=== PATIENT | female | born 1965 | race Caucasian/White ===

== ENCOUNTER 2016-09-30 08:43 | Outpatient (CLI) ==
[2015-10-01 22:47] VITALS: BMI 28.5
--- NOTE | 2016-09-30 10:19 | MRI ---
EXAM: MRI brain without and with IV contrast. DATE: 09/30/2016. HISTORY: Headaches. TECHNIQUE: Sagittal T1W pre and postcontrast, axial T2W, axial FLAIR, axial T1W pre and postcontras t, axial DWI, coronal T1W postcontrast, and coronal T2W GRE sequences of the brain were obtained usi 1.2 [employer]orsche magnet. CONTRAST: Omniscan - 10 ml IV. COMPARISON: CT head 10/01/2015. FINDINGS: The ventricles, cisterns, and subarachnoid spaces are normal in size and configuration. No midline shift, mass effect or abnormal extra-axial fluid collection is apparent. No acute infarc t, hemorrhage or enhancing neoplasm is identified. No abnormal contrast enhancement is identified i n the brain, meninges or dura. Minimal T2W/FLAIR hyperintensity is observed in the white matter abu tting each lateral ventricle. A handful of 2-4 mm, T2W/FLAIR bright, non-enhancing foci are scatter ed in the subcortical white matter bilaterally. The shields - white matter differentiation is normal. No migration or diverticulation abnormality is identified. The amygdala, hippocampus, and parahipp ocampal gyri are similar bilaterally. The 7th/8th cranial nerve complexes, cerebellopontine angles, brainstem, and visible cervical spinal cord are normal. There is no cerebellar tonsillar ectopia. The pituitary gland is normal in size, and has normal signal. Corpus callosum is normal in size an d configuration. Flow voids are present in the major intracranial arteries and in the dural venous sinuses. No aneurysm, AVM or dural venous sinus thrombosis is apparent. No orbit abnormality is id entified. A reticular pattern of T2W bright, T1W intermediate signal without hyperenhancement invol ves a small number of right and moderate number of left mastoid air cells. There is no acute sinusi tis. No neck mass or lymphadenopathy is detected. No calvarial neoplasm or acute fracture is evide nt. IMPRESSIONS: 1. No acute infarct, hemorrhage, enhancing mass or hydrocephalus. 2. Minor cerebral white matter changes - likely small vessel disease. 3. Bilateral mastoid disease, left greater than right.
== END 2016-09-30 08:44 | disposition home or self-care (01) ==
LOC: RAD 08:43
PROVIDERS: ATTEND Family Medicine
DX: R51 Headache (principal)

== ENCOUNTER 2016-10-28 06:58 | Outpatient (CLI) ==
[2015-10-01 22:47] VITALS: BMI 28.5
--- NOTE | 2016-10-28 08:42 | MRI ---
EXAM: MRI brain without IV contrast. DATE: 10/28/2016. HISTORY: Headaches (worsening), chronic neck. TECHNIQUE: Sagittal T1W, axial T2W, axial FLAIR, axial T1W, axial DWI, and coronal T2W GRE sequence s of the brain were obtained using 1.2 [employer] magnet. No IV contrast. COMPARISON: MRI brain 09/30/2016. MRI C-spine 10/28/2016. FINDINGS: The ventricles, cisterns, and subarachnoid spaces are normal in size and configuration. No midline shift, mass effect or abnormal extra-axial fluid collection is apparent. No acute infarc t, hemorrhage or neoplasm is identified. Narrow, confluent rim of T2W/FLAIR hyperintensity is obser jose daniel in the white matter abutting each lateral ventricle. A handful of 2-6 mm, T2W/FLAIR bright foci are scattered in the subcortical white matter bilaterally. The shields - white matter differentiation is normal. The 7th/8th cranial nerve complexes, cerebellopontine angles, brainstem, and visible cer vical spinal cord are normal. There is no cerebellar tonsillar ectopia. The pituitary gland is nor mal in size and signal. Corpus callosum is normal in size and configuration. Flow voids are presen t in the major intracranial arteries and in the dural venous sinuses. No aneurysm, AVM or dural sultana ous sinus thrombosis is apparent. Appearance in the lens of each eye suggest prior cataract surgery . No other orbit abnormality is identified. A small number of inferior mastoid air cells bilateral ly (left greater than right) have T2W bright, T1W intermediate signal similar to September 2016. Remaini ng mastoid air cells are unremarkable. Frontal sinuses are hypoplastic. There is no acute sinusiti s. No neck mass or lymphadenopathy is detected. No calvarial neoplasm or acute fracture is evident . A T1W dark, 6 mm focus in the C4 vertebral body is partially visualized on this exam, but correla issac with a T1W dark, T2W/FLAIR bright lesion on the MRI C-spine of the same date. IMPRESSIONS: 1. No acute infarct, hemorrhage, neoplasm or hydrocephalus. 2. Minor, stable cerebral white matter changes - likely small vessel disease. 3. Bilateral mastoid disease (left > right) is chronic. 4. C4 body lesion - consider atypical hemangioma.
--- NOTE | 2016-10-28 08:54 | MRI ---
EXAM: MRI cervical spine without IV contrast. DATE: 10/28/2016. HISTORY: Chronic neck pain. Worsening headaches. TECHNIQUE: Sagittal and axial T1W and T2W sequences of the cervical spine along with sagittal IR an d coronal T2W sequences were obtained using 1.2 [employer] magnet. No IV contrast. COMPARISON: MRI brain [address] C-spine 10/01/2015. FINDINGS: Minimal rightward curvature of the cervical spine is noted. A 1.3 mm anterior subluxatio n of C5 relative to C4 and 1.4 mm anterolisthesis of C5 relative to C6 are evident. No other sublux ation, acute fracture, or jumped facet is detected. A T2W/IR bright, T1W dark, 6.3 x 7 x 6 mm focus in the C4 vertebral body corresponds with subtle slightly sclerotic focus on prior CT scan. Small anterior osteophytes are demonstrated at C5-6 and C6-7. Mild/moderate left sided degenerative endpl ate changes and moderate disc space narrowing are identified at C6-7. Cervical and upper thoracic sp inal cord reveals no syrinx, cord edema, myelomalacia, or neoplasm. Visible brainstem and cerebellum are normal. Reticular pattern of bilateral mastoid air cell diseas e (left > right) persists. Trachea, larynx, and epiglottis are normal. No thyroid, submandibular, o r parotid gland neoplasm is evident. No distinct neck mass, cervical lymphadenopathy, apical lung m ass, pneumonia, or pleural effusion is demonstrated. Segmental analysis: C2-3: Slight thickening posterior longitudinal ligament is noted. No central canal stenosis. Ther e is minor right facet arthropathy. Each foramen is patent. C3-4: Small posterior disc bulge (1.6 mm AP) does not contact the cord. Canal is 11.3 mm AP. Tito r/mild left foraminal stenosis is due to uncinate hypertrophy. C4-5: Minimal anterior subluxation of C4 and minor posterior disc bulge do not cause cord compressi on. Canal is 10.6 mm AP. Mild left foraminal stenosis is due to moderate left facet arthropathy. C5-6: Minimal anterior subluxation of C5 and minor posterior disc bulge do not cause cord compressi on. Canal is 9.8 mm AP. Mild left foraminal stenosis is due to moderate left facet arthropathy. C6-7: Broad posterior disc/osteophyte complex (2.7 mm AP) flattens the cord anteriorly. Canal is 8 mm AP. Moderate left foraminal stenosis is due to uncinate hypertrophy and minor left facet arthro ricky. C6-7: Minimal posterior disc bulge (1 mm AP) does not contact the cord. Canal is 11.4 mm AP. Each foramen is patent. T1-2: Normal. IMPRESSIONS: 1. C-spine mild spondylosis, mild/moderate facet arthropathy, and multilevel DDD. 2. Mild central canal stenosis and mild cord flattening at C5-6. No syrinx or myelomalacia. 3. Multilevel foraminal stenoses, especially left C6-7. 4. Persistent mastoid air cells disease (left > right). 5. 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 If there is clinical concern for flora gnant neoplasm / metastatic disease, a bone scan could be obtained to exclude a metabolically active process.
== END 2016-10-28 06:59 | disposition home or self-care (01) ==
LOC: RAD 06:58
PROVIDERS: ATTEND Family Medicine
DX: M54.2 Cervicalgia (principal); G89.29 Other chronic pain; R51 Headache; R93.8 Abnormal findings on diagnostic imaging of other specified body structures

== ENCOUNTER 2016-11-13 12:38 | Emergency (ER) | payer OTHER ==
[2016-11-13 12:38] VITALS: BMI 28.5
[2016-11-13 12:49] VITALS: BP 100/68; TEMP 98.4
--- NOTE | 2016-11-13 13:00 | ED.PDOC ---
General ED Provider: Dr. DESIREE BETHEA JR Chief Complaint: Headache Stated Complaint: C/O HEAD AND NECK PAIN AND OPAIN BETWEEN SHOULDER BLADES. HAD MRI OF HEAD AND NECK ON BUT DOES NOT HAVE FOLLOW UP APPOINTMENT. TO SEE NEUROLOGIST ON DEC 09. [ End ]1 month. 98.4 76 16 94% 100/68 11/24. ovarian cysts removed s,. 1 tubal in . hysterectomy 2010. right wrist surgery 2014. chol depr anx. C/O SEVERE HEADACHE AND DIZZINESS. [ End ] Time Seen by Physician: 13:00 Mode of Arrival: Walk-In Information Source: Patient Exam Limitations: No limitations Primary Care Provider: MERY BECKMAN Nursing and Triage Documentation Reviewed and Agree: No Review of Systems - Review Of Systems Constitutional: Reports: Malaise Eyes: Reports: No symptoms Ears, Nose, Mouth, Throat: Reports: No symptoms Respiratory: Reports: No symptoms Cardiac: Reports: No symptoms GI: Reports: No symptoms : Reports: No symptoms Musculoskeletal: Reports: Muscle pain, Neck pain Skin: Reports: No symptoms Neurological: Reports: Headache, Numbness, Tingling Endocrine: Reports: No symptoms Hematologic/Lymphatic: Reports: No symptoms All Other Systems: Other Past Medical History - Past Medical History Endocrine: Reports: None Cardiovascular: Reports: None Respiratory: Reports: None Hematological: Reports: None Gastrointestinal: Reports: None Genitourinary: Reports: UTI Neuro/Psych: Reports: Anxiety, Depression Musculoskeletal: Reports: None Cancer: Reports: None Last Menstrual Period: NA - Surgical History General Surgical History: Reports: None - Family History Family History: Reports: None - Social History Smoking Status: Current every day smoker Hx Substance Use: No Alcohol Screening: None Physical Exam - Physical Exam Appearance: Ill-appearing, Thin Pain Distress: Moderate Eyes: ANA, EOMI, Conjunctiva clear ENT: Ears normal, Nose normal, Oropharynx normal Neck: Supple Respiratory: Airway patent, Breath sounds clear, Breath sounds equal, Respirations nonlabored Cardiovascular: RRR, Pulses normal, No rub, No murmur GI/: Soft, Nontender, No masses, Bowel sounds normal, No Organomegaly Musculoskeletal: Normal strength, ROM intact, No edema, No calf tenderness Skin: Warm, Dry, Normal color Neurological: Sensation intact, Motor intact, Reflexes intact, Cranial nerves intact, Alert, Oriented Psychiatric: Affect appropriate, Mood appropriate, Anxious Re-Evaluation - Re-Evaluation Time of Re-Evaluation: 14:18 (after ultram) Status: Improved Critical Care Note - Critical Care Note Total Time (mins): 0 Course - Course Orders, Labs, Meds: Orders Category Date Time Status Tramadol HCl [Ultram] MEDS 11/13/16 13:19 Discontinued 50 mg PO ONCE STA Medications Discontinued Medications Generic Name Dose Route Start Last Admin Trade Name Freq PRN Reason Stop Dose Admin Tramadol HCl 50 mg 11/13/16 13:19 11/13/16 13:55 Ultram PO 11/13/16 13:20 50 mg ONCE STA Administration Vital Signs: Temp Pulse Resp BP Pulse Ox 11/13/16 12:44 98.4 F 76 16 100/68 94 L Departure - Departure Time of Disposition: 14:19 Disposition: HOME SELF-CARE Discharge Problem: Headache, Neck pain Instructions: Cervical Strain (ED), Neck Pain (ED), General Headache (ED) Condition: Good Pt referred to PMD for follow-up: Yes Additional Instructions: follow up with neurologist as scheduled may use tramadol for pain no refills may follow up with PMD return if fever focal weakness or new symptoms Augmentin for history of mastoid sinusitis- may need one or two weeks more of antibiotics if not resolved discuss with ENT or PMD Prescriptions: Amoxicillin/Potassium Clav [Augmentin 875-125 mg Tab] 1 tab PO BIDWM #14 tablet Tramadol HCl [Ultram] 50 mg PO Q6H PRN #14 tablet PRN Reason: PAIN Allergies/Adverse Reactions: Allergies Sulfa (Sulfonamide Antibiotics) Allergy (Mild, Verified 11/13/16 12:41) Hives Home Medications: Ambulatory Orders Budesonide/Formoterol Fumarate [Symbicort 160-4.5 Mcg Inhaler] 2 puff IH BID 05/29 Sertraline HCl [Zoloft] 200 mg PO BEDTIME 09/16/14 Tiotropium [place] [Spiriva] 1 cap IH DAILY 09/16/14 Alprazolam [Xanax] 0.5 mg PO QID 10/01/15 Quetiapine Fumarate [Seroquel] 100 mg PO BEDTIME #30 07/04/16 Amoxicillin/Potassium Clav [Augmentin 875-125 mg Tab] 1 tab PO BIDWM #14 tablet 11/13/16 Tramadol HCl [Ultram] 50 mg PO Q6H PRN #14 tablet 11/13/16
[2016-11-13] MEDS ORDERED: ULTRAM PO STA (13:19)
== END 2016-11-13 14:30 | disposition home or self-care (01) ==
LOC: ED 12:38
DX: R51 Headache (principal); M54.2 Cervicalgia; R20.0 Anesthesia of skin; F17.210 Nicotine dependence, cigarettes, uncomplicated
CPT/HCPCS: 99282

== ENCOUNTER 2017-03-26 07:28 | Outpatient (CLI) ==
--- NOTE | 2017-03-26 09:19 | US ---
EXAM: Renal ultrasound HISTORY: Renal insufficiency. Technique: Multiple sonographic images through the kidneys were obtained. Color duplex Doppler was used to interrogate vascular flow. Findings: The bladder was not well distended. The right kidney measures 8.6 cm in long length demonstrating normal cortical echogenicity without ev idence for hydronephrosis, mass or shadowing calculus. The left kidney measures 8.2 cm in long length demonstrating normal cortical echogenicity without leyla dence for hydronephrosis, mass or shadowing calculus. Impression: No acute sonographic findings.
== END 2017-03-26 07:29 | disposition home or self-care (01) ==
LOC: RAD 07:28
PROVIDERS: ATTEND Family Medicine
DX: N28.9 Disorder of kidney and ureter, unspecified (principal)
CPT/HCPCS: 76770

== ENCOUNTER 2018-01-09 14:51 | Emergency (ER) | payer OTHER ==
[2018-01-09 14:54] VITALS: BP 105/68; TEMP 98; BMI 25.9
--- NOTE | 2018-01-09 17:15 | ED.PDOC ---
General ED Provider: Dr. ENRIQUETA MARIE Chief Complaint: Dizziness Stated Complaint: dizziness Time Seen by Physician: 15:00 Mode of Arrival: Walk-In Information Source: Patient Exam Limitations: No limitations Primary Care Provider: MERY BECKMAN Nursing and Triage Documentation Reviewed and Agree: Yes Does patient meet sepsis criteria?: No System Inflammatory Response Syndrome: Not Applicable (see photos) Sepsis Protocol: For patient's 13 years and over: Temp is 96.8 and below OR 101 and greater Pulse >90 BPM Resp >20/minute Acutely Altered Mental Status Are patient's symptoms suggestive of a new infection, such as: -Pneumonia -Skin, Soft Tissue -Endocarditis -UTI -Bone, Joint Infection -Implantable Device -Acute Abdominal Infection -Wound Infection -Meningitis -Blood Stream Catheter Infection -Unknown Neurological Complaint Exam - Dizziness Complaint/Exam Last Known Well: 2 days ago Onset: Sudden Duration: 2 days Symptoms Are: Still present Timing: Intermittent Episodes Lasting: Days Initial Severity: Mild Current Severity: Mild Character: Reports: Dizzy Aggravating: Reports: Position change Alleviating: Reports: None Associated Signs and Symptoms: Denies: Nausea, Vomiting, Diaphoresis, Tinnitus, Chest pain, Short of air, Palpitations, Unsteady gait, GI blood loss, Visual changes, Decreased oral intake, Change in medication, Change in diet, OTC meds, Loss of balance Review of Systems - Review Of Systems Constitutional: Reports: No symptoms Eyes: Reports: No symptoms Ears, Nose, Mouth, Throat: Reports: No symptoms Respiratory: Reports: No symptoms Cardiac: Reports: No symptoms GI: Reports: No symptoms : Reports: No symptoms Musculoskeletal: Reports: No symptoms Skin: Reports: No symptoms Neurological: Reports: No symptoms Endocrine: Reports: No symptoms Hematologic/Lymphatic: Reports: No symptoms All Other Systems: Reviewed and Negative Past Medical History - Past Medical History Previously Healthy: Yes Endocrine: Reports: None Cardiovascular: Reports: None Respiratory: Reports: None Hematological: Reports: None Gastrointestinal: Reports: None Genitourinary: Reports: UTI Neuro/Psych: Reports: Anxiety, Depression Musculoskeletal: Reports: None Cancer: Reports: None Last Menstrual Period: N/A - Surgical History General Surgical History: Reports: None - Family History Family History: Reports: None - Social History Smoking Status: Current every day smoker Hx Substance Use: No Alcohol Screening: None - Immunizations Tetanus Shot up to Date: No Physical Exam - Physical Exam Appearance: Well-appearing, No pain distress, Well-nourished Eyes: ANA, EOMI, Conjunctiva clear ENT: Ears normal, Nose normal, Oropharynx normal Respiratory: Airway patent, Breath sounds clear, Breath sounds equal, Respirations nonlabored Cardiovascular: RRR, Pulses normal, No rub, No murmur GI/: Soft, Nontender, No masses, Bowel sounds normal, No Organomegaly Musculoskeletal: Normal strength, ROM intact, No edema, No calf tenderness Skin: Warm, Dry, Normal color Neurological: Sensation intact, Motor intact, Reflexes intact, Cranial nerves intact, Alert, Oriented Psychiatric: Affect appropriate, Mood appropriate - NIH Stroke Scale 1a. Level of Consciousness: 0=Alert and keenly responsive 1b. Level of Consciousness Questions: 0=Answers correctly to two questions 1c. Level of Consciousness Commands: 0=Performs two tasks correctly 2. Best Gaze: 0=Normal 3. Visual: 0=No visual loss 4. Facial Palsy: 0=Normal 5a. Motor Left Arm: 0=No drift,arm holds 90 degrees for 10 sec., leg 30 degrees for 5 sec. 5b. Motor Right Arm: 0=No drift,arm holds 90 degrees for 10 sec., leg 30 degrees for 5 sec. 6a. Motor Left Le=No drift,arm holds 90 degrees for 10 sec., leg 30 degrees for 5 sec. 6b. Motor Right Le=No drift,arm holds 90 degrees for 10 sec., leg 30 degrees for 5 sec. 7. Limb Ataxia: 0=Absent 8. Sensory: 0=Normal 9. Best Language: 0=No aphasia 10. Dysarthria: 0=Normal 11. Extincion and Inattention: 0=Normal Stroke Scale Total: 0 Interpretation - Radiology Interpretation Radiology Interpretation By: Radiologist Radiology Results: No acute changes Re-Evaluation - Re-Evaluation Time of Re-Evaluation: 18:00 Status: Improved Vital Signs Stable: Yes Pain Level: 0 Appearance: NAD Lungs: Clear Skin: Warm and Dry Neuro: Alert and Oriented X3 CV: RRR - Re-Evaluation Time of Re-Evaluation: 17:31 Status: Improved Vital Signs Stable: Yes Appearance: NAD Skin: Warm and Dry Neuro: Alert and Oriented X3 CV: RRR Critical Care Note - Critical Care Note Total Time (mins): 0 Course - Course Hematology/Chemistry: 01/09/18 15:32 01/09/18 15:32 Orders, Labs, Meds: Lab Review 01/09/18 01/09/18 01/09/18 15:32 15:32 15:32 WBC 8.63 RBC 4.70 Hgb 14.6 Hct 42.1 MCV 89.6 MCH 31.1 H MCHC 34.7 RDW Coeff of Zach 13.9 Plt Count 171 Immature Gran % (Auto) 0.1 Neut % (Auto) 57.1 Lymph % (Auto) 34.3 [place] % (Auto) 5.9 Eos % (Auto) 1.7 Baso % (Auto) 0.9 Immature Gran # (Auto) 0.0 Neut # (Auto) 4.9 Lymph # (Auto) 3.0 [place] # (Auto) 0.5 Eos # (Auto) 0.2 Baso # (Auto) 0.1 Sodium 141.1 Potassium 4.10 Chloride 106.6 Carbon Dioxide 33.9 H Anion Gap 4.70 BUN 10.3 Creatinine 1.15 Estimated GFR (MDRD) 49.00 BUN/Creatinine Ratio 8.95 Glucose 93.8 Calcium 9.52 Total Bilirubin 0.32 AST 14.1 ALT 8.6 Alkaline Phosphatase 82.2 Total Creatine Kinase 57.0 Troponin I < 0.012 Total Protein 7.48 Albumin 4.24 Globulin 3.24 Albumin/Globulin Ratio 1.30 Orders Category Date Time Status EKG-(ED ONLY) Stat CARDIO 01/09/18 15:23 Completed CBC W/ AUTO DIFF Stat LAB 01/09/18 15:32 Completed COMPREHENSIVE METABOLIC PANEL Stat LAB 01/09/18 15:32 Completed CREATINE KINASE Stat LAB 01/09/18 15:32 Completed TROPONIN I Stat LAB 01/09/18 15:[address] HEAD W/O CONTRAST Stat RADS 01/09/18 15:27 Taken Vital Signs: Temp Pulse Resp BP Pulse Ox 01/09/18 14:52 98.0 F 97 H 16 105/68 98 Departure - Departure Time of Disposition: 17:31 Disposition: HOME SELF-CARE Discharge Problem: Dizziness Instructions: Vertigo (ED), Dizziness (ED), Lightheadedness (ED) Condition: Good Pt referred to PMD for follow-up: Yes IPMP verified?: No Additional Instructions: Please call your Family Physician as soon as possible to schedule a follow-up appointment. Allergies/Adverse Reactions: Allergies Sulfa (Sulfonamide Antibiotics) Allergy (Mild, Verified 01/09/18 14:54) Hives Home Medications: Ambulatory Orders Budesonide/Formoterol Fumarate [Symbicort 160-4.5 Mcg Inhaler] 2 puff IH BID 05/29 Sertraline HCl [Zoloft] 200 mg PO BEDTIME 09/16/14 Tiotropium [place] [Spiriva] 1 cap IH DAILY 09/16/14 Alprazolam [Xanax] 0.5 mg PO QID 10/01/15 Quetiapine Fumarate [Seroquel] 100 mg PO BEDTIME #30 07/04/16 Tramadol HCl [Ultram] 50 mg PO Q6H PRN #14 tablet 11/13/16 Disposition Discussed With: Patient, Family
--- NOTE | 2018-01-12 08:37 | CT ---
EXAM: CT of the head without contrast History: Headache and dizziness. Comparison: Head CT 10/01/2015 Technique: Multiplanar CT images through the head were obtained without the administration of IV con trast Findings: Air-fluid levels seen within the left maxillary sinus. Mastoid air cells are clear in gen eral. No acute calvarial abnormalities. Intracranially the ventricular and cisternal spaces are normal in size, shape and configuration for a patient of this age. No dominant mass or midline shift. No hydrocephalous. No acute intracranial hemorrhage or abnormal extraaxial fluid collections. Impression: 1. No acute intracranial process. 2. Left maxillary sinusitis
== END 2018-01-09 17:43 | disposition home or self-care (01) ==
LOC: ED 14:51
DX: R42 Dizziness and giddiness (principal); F17.210 Nicotine dependence, cigarettes, uncomplicated
CPT/HCPCS: 36415; 80053; 82550; 84484; 85025; 93005; 93010; 99284